=== PATIENT | female | born 1965 | race Caucasian/White ===

== ENCOUNTER 2020-09-30 12:02 | Emergency (ER) | payer OTHER, SELFPAY ==
--- NOTE | ~2020-09-30 | CT_ITS ---
EXAMINATION: CT ANGIOGRAM OF THE CHEST WITH AND WITHOUT CONTRAST (CT PULMONARY ANGIOGRAM FOR PE) CLINICAL INFORMATION: Reason for Exam COVID-19 positive, pleuritic chest pain rule out PE, pneumon COMPARISON: None TECHNIQUE: Prior to contrast administration, noncontrast localization images were obtained. Subsequently, multidetector volumetric imaging was performed from the thoracic inlet to below the diaphragms following the administration of 80 mL Omnipaque 350 intravenous contrast. No contrast reaction reported Sagittal, coronal, and MIP oblique sagittal reformatted images were obtained on the CT workstation, uploaded to PACS, and reviewed. This CT examination was performed using dose optimization techniques as appropriate, variously including the following: *Automated exposure control *Adjustment of mA and/or kV according to patient size (this includes techniques or standardized protocols for targeted exams where dose is matched to indication/reason for exam; i.e. extremities or head) *Use of iterative reconstruction technique Total exam dose-length product 123 mGy-cm FINDINGS: QUALITY OF STUDY/CONTRAST BOLUS: Satisfactory. PULMONARY ARTERIES: No central or segmental pulmonary emboli. THORACIC AORTA: No aneurysm or dissection. LUNG: A patchy groundglass densities seen scattered throughout both upper lobes, lower lobes, right middle lobe and lingula consistent with infiltrates. Question: The disease. PLEURA: No pleural effusion or pneumothorax. MEDIASTINUM: Normal heart size. No pericardial effusion. No hilar or mediastinal lymphadenopathy. No evidence of septal bowing or right heart strain. CHEST WALL/AXILLA: No axillary or internal mammary lymphadenopathy. OSSEOUS STRUCTURES: No acute or suspicious osseous abnormality. UPPER ABDOMEN: Unremarkable. No reflux of contrast into the hepatic veins to suggest elevated right heart pressures. CT/CT angio chest PE protocol IMPRESSION: No evidence PE. No evidence of aortic or aneurysm. Multiple groundglass densities scattered throughout the entire lung suspicious for developing infiltrates likely related to Covid disease. VTE: negative
[2020-09-30 12:10] VITALS: BP 98/55; PULSE 87; RESP 20; TEMP 36.8; O2SAT 96; BMI 32.4
--- NOTE | 2020-09-30 12:44 | ECG_ITS ---
Test Reason : CHEST PAIN Blood Pressure : / mmHG Vent. Rate : 075 BPM Atrial Rate : 075 BPM P-R Int : 142 ms QRS Dur : 082 ms QT Int : 358 ms P-R-T Axes : 002 -26 -06 degrees QTc Int : 399 ms Normal sinus rhythm Low voltage QRS Borderline ECG No previous ECGs available Referred By: Jose Alcazar Electronically Signed By:JAYA WESTBROOK
--- NOTE | 2020-09-30 12:48 | ED.GENADULT ---
HPI - General Adult General Chief complaint: Upper Respiratory Symptoms Stated complaint: + covid, sob, weakness Time Seen by Provider: 09/30/20 12:22 Source: patient and family (Daughter) Mode of arrival: ambulatory Limitations: language barrier (Patient's 1st language is Salvadorean, she does speak some [place]se) History of Present Illness HPI narrative: 55-year-old female who tested positive for COVID-19 on on 09/24/2020 who presents emergency department for evaluation of pleuritic chest pain, nonproductive cough, shortness of breath, dyspnea on exertion, subjective fever, fatigue with weakness, loss of appetite, vomiting and headache. Patient states that she has gotten progressively more short of breath with significant dyspnea on exertion over the past 2-3 days, she has developed a persistent, nonproductive cough which is triggered by breathing. She complains of a constant, diffuse, moderate to severe throbbing headache. She states that she has lost her appetite has had very little to eat over the past 24-48 hours. She states that she has had 2-3 episodes of vomiting per day. She denies diarrhea. The patient was not vaccinated for COVID-19. Her daughter is also COVID-19 positive. Related Data Previous Rx's Medication Instructions Recorded dexamethasone 6 mg PO DAILY 5 Days #5 tab 09/30/20 ondansetron 4 mg PO Q6-8H PRN #14 tab 09/30/20 Allergies Allergy/AdvReac Type Severity Reaction Status Date / Time No Known Allergies Allergy Verified 09/30/20 12:09 Review of Systems Review of Systems: Yes all other systems are reviewed and are negative COUNT INCLUDES THE [facility] Past Medical History COUNT INCLUDES THE [facility] Narrative: Patient has no chronic medical conditions, she does not take any medications on a regular basis, she does smoke cigarettes, she denies alcohol and drug use. Medical History COVID-19 Social History Social History Alcohol intake: never Smoking Status: Never smoker Advance Directives: No Advance Directives Information Provided: No Patient : No Physical Exam Vital Signs: Vital Signs: Last Vital Signs Temp 99.8 F 09/30/20 13:04 Pulse 74 09/30/20 14:16 Resp 16 09/30/20 14:16 BP 113/74 09/30/20 14:16 Pulse Ox 96 09/30/20 14:16 Body Mass Index 32.4 Const: General: cooperative and ill appearing Orientation/consciousness: oriented to person and oriented to place Limitations: no limitations HENMT: Head: Yes normal to inspection, Yes normocephalic and Yes atraumatic Ears: external ears normal General nose exam: Normal external nose present Face and sinus: Yes normal facial exam Mouth: Abnormal oral and palatal mucosa present (Very dry, no erythema or exudates) Throat: Yes posterior oropharynx normal Eyes: Periorbital: periorbital findings normal Eyelids: Yes eyelids normal Conjunctivae: conjunctivae normal Sclerae: sclerae normal Corneas: corneas normal Pupils: Equal, round and reactive pupils present Direct Ophthalmoscopy: normal light reflex Neck: Neck: Yes full ROM, Yes no lymphadenopathy, Yes no meningeal signs, Yes trachea midline and Yes supple Chest: Chest palpation & inspection: normal inspection of the chest and normal palpation of entire chest wall Resp: Effort & Inspection: able to speak in complete sentences Auscultation: rales bilateral in the lower lung mcnally and rhonchi (Diffuse) Cardio: Rate: regular rate Rhythm: regular rhythm Heart sounds: S1 normal heart sound present, S2 normal heart sound present and no murmurs GI: Inspection: Yes normal to inspection Palpation (GI): Soft to palpation, nontender, no guarding, not rigid and No hepatosplenomegaly present : General: Yes no CVA tenderness Back/Spine/Pelvis: Back: no CVA tenderness Cervical Spine: normal cervical lordosis Thoracic/Lumbar Spine: thoracic and lumbar spine normal to inspection Skin: Lesions: no lesions Rashes: no rashes Wounds: no wounds Neuro: General: oriented to person, oriented to place and no meningeal signs Cranial nerves: Yes CN's II-XII intact bilaterally and Yes Equal, round and reactive pupils present Cognition (Neuro): normal cognition Motor exam (neuro): 5/5 motor strength present throughout Extrem: General: Yes normal to inspection and Yes full ROM Psych: Appearance: well kempt Mental Status: mental status grossly normal Speech and movement: Normal speech and movement present Affect: normal affect Attitude: cooperative Thought process: Normal thought process present Thought content: Normal thought content present Course Course Course Narrative: 55-year-old female who tested COVID positive approximately 6 days prior to evaluation who presents emergency department for evaluation of worsening shortness of breath, dyspnea on exertion chest pain, loss of appetite, vomiting and myalgias. Vital signs were stable with an O2 saturation of 96% on room air. Physical examination did reveal an ill-appearing woman. Lung exam did reveal diffuse rhonchi and rales at the bases. I did order a laboratory evaluation to include CBC, CMP, troponin, CK, CRP, sedimentation rate, ferritin, D-dimer, PT INR, PTT and CT pulmonary artery PE protocol. Patient was ordered to get normal saline x1 L for her dehydration. I also ordered Toradol 30 mg IV for her pain, Zofran 4 mg IV for nausea and vomiting and Decadron 6 mg IV to help reduce inflammation secondary to her COVID-19 infection. 1742: Patient's laboratory evaluation revealed a low WBC of 3.2 and a low platelet count of 956669. Patient also had a slightly elevated lactic acid 2.8. CRP was slightly elevated at 1.7 and ESR was slightly elevated at 23. Ferritin was elevated at 672. CT pulmonary angiogram PE protocol revealed ground-glass appearance of the patient's lungs but no evidence of pulmonary embolism. The patient's findings are consistent with COVID-19 pneumonia. The patient has not had any demonstrate hypoxia while she has been here in the emergency department. She is feeling better after receiving 2 L of normal saline IV in the above medications. The patient will be discharged home with a prescription for Decadron 6 mg daily for 5 days. Zofran 0.4 mg ODT every 6 hours as needed for nausea and vomiting. She is also advised to take Tylenol. She states that she has a pulse oximeter at home and I told her for O2 saturation is consistently below 92% and she should return to the emergency department for re-evaluation. Medical Decision Making Lab Data Result diagrams: 09/30/20 13:29 09/30/20 13:29 Labs: Lab Results 09/30/20 09/30/20 09/30/20 Range/Units 13:29 13:29 13:29 WBC 3.2 L (4.8-10.8) X10*3/uL RBC 4.43 (4.20-5.50) X10*6/uL Hgb 13.6 (12.0-16.0) g/dl Hct 39.1 (37-47) % MCV 88.3 (80-98) fL MCH 30.7 (27.0-33.0) pg MCHC 34.8 (31.0-35.0) g/dl RDW 12.1 (11.0-16.0) % Plt Count 110 L (160-400) X10*3/uL MPV 10.9 (9.4-12.3) fL Immature Gran % (Auto) 0.3 (0.0-0.4) % Neut % (Auto) 60.6 (45-73) % Lymph % (Auto) 31.6 (20-40) % [place]lier % (Auto) 7.5 (2-11) % Eos % (Auto) 0.0 (0-4) % Baso % (Auto) 0.0 (0-2) % Lymph # (Auto) 1.0 L (1.2-4.9) X10*3/uL [place] # (Auto) 0.2 (0.1-1.2) X10*3/uL Eos # (Auto) 0.0 (0.0-0.4) X10*3/uL Baso # (Auto) 0.0 (0.0-0.2) X10*3/uL Abs Immat Gran (auto) 0.01 (0.00-0.03) X10*3/uL Absolute Neuts (auto) 1.9 L (2.0-8.3) X10*3/uL Absolute Nucleated RBC 0.000 (0.0-0.012) X10*3/uL Nucleated RBC % (auto) 0.0 (0.0-0.2) /100WBC ESR (0-20) MM/HR PT (10.8-13.0) SEC INR (0.9-1.1) APTT (24.1-38.0) SEC D-Dimer Cancelled Sodium (135-145) mmol/L Potassium (3.3-5.1) mmol/L Chloride (96-108) mmol/L Carbon Dioxide (22-29) mmol/L Anion Gap (12-20) BUN (9-16) mg/dL Creatinine (0.5-1.4) mg/dL Estim Creat Clear Calc Estimated GFR Random Glucose (60-115) mg/dL Lactic Acid (0.5-2.0) mmol/L Calcium (8.4-10.2) mg/dL Ferritin Cancelled Total Bilirubin (0.0-1.0) mg/dL AST (5-31) U/L ALT (0-31) U/L Alkaline Phosphatase (39-117) U/L Total Creatine Kinase (26-140) U/L Troponin I High Sens (<3.5-17.0) ng/L C-Reactive Protein (< or = 0.50) mg/dL Total Protein (6.5-8.0) g/dL Albumin (3.5-5.0) g/dL Lipase (8-78) U/L Urine Color Urine Appearance Urine pH (5.0-8.0) Ur Specific [place] (1.005-1.025) Urine Protein (NEG-TRACE) MG/DL Urine Glucose (UA) (NEG) MG/DL Urine Ketones (NEG) MG/DL Urine Blood (NEG) Urine Nitrite (NEG) Ur Leukocyte Esterase (NEG) Urine RBC (0) /HPF Urine WBC (0-4) /HPF Ur Squamous Epith Cells /LPF Urine Bacteria /LPF 09/30/20 09/30/20 09/30/20 Range/Units 13:29 13:29 13:29 WBC (4.8-10.8) X10*3/uL RBC (4.20-5.50) X10*6/uL Hgb (12.0-16.0) g/dl Hct (37-47) % MCV (80-98) fL MCH (27.0-33.0) pg MCHC (31.0-35.0) g/dl RDW (11.0-16.0) % Plt Count (160-400) X10*3/uL MPV (9.4-12.3) fL Immature Gran % (Auto) (0.0-0.4) % Neut % (Auto) (45-73) % Lymph % (Auto) (20-40) % [place]lier % (Auto) (2-11) % Eos % (Auto) (0-4) % Baso % (Auto) (0-2) % Lymph # (Auto) (1.2-4.9) X10*3/uL [place] # (Auto) (0.1-1.2) X10*3/uL Eos # (Auto) (0.0-0.4) X10*3/uL Baso # (Auto) (0.0-0.2) X10*3/uL Abs Immat Gran (auto) (0.00-0.03) X10*3/uL Absolute Neuts (auto) (2.0-8.3) X10*3/uL Absolute Nucleated RBC (0.0-0.012) X10*3/uL Nucleated RBC % (auto) (0.0-0.2) /100WBC ESR (0-20) MM/HR PT 12.4 (10.8-13.0) SEC INR 1.0 (0.9-1.1) APTT 35.7 (24.1-38.0) SEC D-Dimer 218 Sodium 141 (135-145) mmol/L Potassium 3.6 (3.3-5.1) mmol/L Chloride 102 (96-108) mmol/L Carbon Dioxide 28 (22-29) mmol/L Anion Gap 15 (12-20) BUN 6 L (9-16) mg/dL Creatinine 0.78 (0.5-1.4) mg/dL Estim Creat Clear Calc 84.1 Estimated GFR > 60 Random Glucose 105 (60-115) mg/dL Lactic Acid 2.8 H* (0.5-2.0) mmol/L Calcium 8.7 (8.4-10.2) mg/dL Ferritin 672 H Total Bilirubin 0.6 (0.0-1.0) mg/dL AST 40 H (5-31) U/L ALT 32 H (0-31) U/L Alkaline Phosphatase 75 (39-117) U/L Total Creatine Kinase 35 (26-140) U/L Troponin I High Sens (<3.5-17.0) ng/L C-Reactive Protein 1.17 H (< or = 0.50) mg/dL Total Protein 6.9 (6.5-8.0) g/dL Albumin 3.9 (3.5-5.0) g/dL Lipase 27 (8-78) U/L Urine Color Urine Appearance Urine pH (5.0-8.0) Ur Specific [place] (1.005-1.025) Urine Protein (NEG-TRACE) MG/DL Urine Glucose (UA) (NEG) MG/DL Urine Ketones (NEG) MG/DL Urine Blood (NEG) Urine Nitrite (NEG) Ur Leukocyte Esterase (NEG) Urine RBC (0) /HPF Urine WBC (0-4) /HPF Ur Squamous Epith Cells /LPF Urine Bacteria /LPF 09/30/20 09/30/20 09/30/20 Range/Units 13:29 13:29 13:30 WBC (4.8-10.8) X10*3/uL RBC (4.20-5.50) X10*6/uL Hgb (12.0-16.0) g/dl Hct (37-47) % MCV (80-98) fL MCH (27.0-33.0) pg MCHC (31.0-35.0) g/dl RDW (11.0-16.0) % Plt Count (160-400) X10*3/uL MPV (9.4-12.3) fL Immature Gran % (Auto) (0.0-0.4) % Neut % (Auto) (45-73) % Lymph % (Auto) (20-40) % [place] % (Auto) (2-11) % Eos % (Auto) (0-4) % Baso % (Auto) (0-2) % Lymph # (Auto) (1.2-4.9) X10*3/uL [place] # (Auto) (0.1-1.2) X10*3/uL Eos # (Auto) (0.0-0.4) X10*3/uL Baso # (Auto) (0.0-0.2) X10*3/uL Abs Immat Gran (auto) (0.00-0.03) X10*3/uL Absolute Neuts (auto) (2.0-8.3) X10*3/uL Absolute Nucleated RBC (0.0-0.012) X10*3/uL Nucleated RBC % (auto) (0.0-0.2) /100WBC ESR 23 H (0-20) MM/HR PT (10.8-13.0) SEC INR (0.9-1.1) APTT (24.1-38.0) SEC D-Dimer Sodium (135-145) mmol/L Potassium (3.3-5.1) mmol/L Chloride (96-108) mmol/L Carbon Dioxide (22-29) mmol/L Anion Gap (12-20) BUN (9-16) mg/dL Creatinine (0.5-1.4) mg/dL Estim Creat Clear Calc Estimated GFR Random Glucose (60-115) mg/dL Lactic Acid (0.5-2.0) mmol/L Calcium (8.4-10.2) mg/dL Ferritin Total Bilirubin (0.0-1.0) mg/dL AST (5-31) U/L ALT (0-31) U/L Alkaline Phosphatase (39-117) U/L Total Creatine Kinase Cancelled (26-140) U/L Troponin I High Sens 4.7 (<3.5-17.0) ng/L C-Reactive Protein Cancelled (< or = 0.50) mg/dL Total Protein (6.5-8.0) g/dL Albumin (3.5-5.0) g/dL Lipase (8-78) U/L Urine Color Urine Appearance Urine pH (5.0-8.0) Ur Specific [place] (1.005-1.025) Urine Protein (NEG-TRACE) MG/DL Urine Glucose (UA) (NEG) MG/DL Urine Ketones (NEG) MG/DL Urine Blood (NEG) Urine Nitrite (NEG) Ur Leukocyte Esterase (NEG) Urine RBC (0) /HPF Urine WBC (0-4) /HPF Ur Squamous Epith Cells /LPF Urine Bacteria /LPF 09/30/20 Range/Units 15:03 WBC (4.8-10.8) X10*3/uL RBC (4.20-5.50) X10*6/uL Hgb (12.0-16.0) g/dl Hct (37-47) % MCV (80-98) fL MCH (27.0-33.0) pg MCHC (31.0-35.0) g/dl RDW (11.0-16.0) % Plt Count (160-400) X10*3/uL MPV (9.4-12.3) fL Immature Gran % (Auto) (0.0-0.4) % Neut % (Auto) (45-73) % Lymph % (Auto) (20-40) % [place] % (Auto) (2-11) % Eos % (Auto) (0-4) % Baso % (Auto) (0-2) % Lymph # (Auto) (1.2-4.9) X10*3/uL [place] # (Auto) (0.1-1.2) X10*3/uL Eos # (Auto) (0.0-0.4) X10*3/uL Baso # (Auto) (0.0-0.2) X10*3/uL Abs Immat Gran (auto) (0.00-0.03) X10*3/uL Absolute Neuts (auto) (2.0-8.3) X10*3/uL Absolute Nucleated RBC (0.0-0.012) X10*3/uL Nucleated RBC % (auto) (0.0-0.2) /100WBC ESR (0-20) MM/HR PT (10.8-13.0) SEC INR (0.9-1.1) APTT (24.1-38.0) SEC D-Dimer Sodium (135-145) mmol/L Potassium (3.3-5.1) mmol/L Chloride (96-108) mmol/L Carbon Dioxide (22-29) mmol/L Anion Gap (12-20) BUN (9-16) mg/dL Creatinine (0.5-1.4) mg/dL Estim Creat Clear Calc Estimated GFR Random Glucose (60-115) mg/dL Lactic Acid (0.5-2.0) mmol/L Calcium (8.4-10.2) mg/dL Ferritin Total Bilirubin (0.0-1.0) mg/dL AST (5-31) U/L ALT (0-31) U/L Alkaline Phosphatase (39-117) U/L Total Creatine Kinase (26-140) U/L Troponin I High Sens (<3.5-17.0) ng/L C-Reactive Protein (< or = 0.50) mg/dL Total Protein (6.5-8.0) g/dL Albumin (3.5-5.0) g/dL Lipase (8-78) U/L Urine Color YELLOW Urine Appearance CLEAR Urine pH 6.5 (5.0-8.0) Ur Specific [place] <= 1.005 (1.005-1.025) Urine Protein TRACE (NEG-TRACE) MG/DL Urine Glucose (UA) NEG (NEG) MG/DL Urine Ketones 5 (NEG) MG/DL Urine Blood 3+ H (NEG) Urine Nitrite NEG (NEG) Ur Leukocyte Esterase NEG (NEG) Urine RBC 1-4 (0) /HPF Urine WBC 0 (0-4) /HPF Ur Squamous Epith Cells 1+ /LPF Urine Bacteria NONE /LPF ECG Data Attestation: I personally reviewed and interpreted this ECG as follows: Interpretation: 1249: Normal sinus rhythm with a rate of 75, normal WA, QR and QTC intervals, inverted T-wave in lead 3, no ST segment elevation, no ST segment depression, no old EKG for comparison. Discharge Plan Discharge Clinical Impression: Pneumonia due to 2019 novel coronavirus, Acute dehydration Patient Disposition: Home, Self-Care Instructions: COVID-19 (Coronavirus Disease 2019) (ED) Additional Instructions: Your laboratory evaluation is consistent with COVID-[address] scan of the chest is consistent with the COVID-19 pneumonia as well, there is no evidence of blood clots in your lungs at this time which is reassuring. Take dexamethasone 6 mg, 1 pill daily for 5 days. This is a strong anti-inflammatory medication and should help reduce the inflammation in your lungs. Take Zofran (ondansetron) ODT 4 mg, 1 pill dissolved in your mouth every 6-8 hours as needed for nausea and vomiting Take Tylenol (acetaminophen) 500 mg pills, 2 pills every 4 to 6 hours as needed for pain or fever. Use your O2 saturation monitor. If you drop consistently below 92% then you should return to the emergency department for re-evaluation. If your oxygen level is 88% or below, we often treat you with oxygen in the hospital. Follow-up with your doctor in 2 days. Please return to the emergency department if your symptoms get worse or if you develop any symptoms that are concerning to you. Prescriptions: New dexamethasone 6 mg tablet 6 mg PO DAILY 5 Days Qty: 5 RF: 0 ondansetron 4 mg tablet,disintegrating 4 mg PO Q6-8H PRN (Reason: nausea and vomiting) Qty: 14 RF: 0
[2020-09-30 13:04] VITALS: BP 118/85; PULSE 75; RESP 20; TEMP 37.7; O2SAT 98
[2020-09-30 13:38] LABS: MANUAL DIFF FLAG NO
[2020-09-30 13:41] LABS: Hematocrit 39.1 % (37-47); Hemoglobin 13.6 g/dl (12.0-16.0); Imm Gran Abs Auto 0.01 X10*3/uL (0.00-0.03); Imm Gran Pct Auto 0.3 % (0.0-0.4); Lymphocytes Percent Auto 31.6 % (20-40); Mean Corpuscular HGB Conc 34.8 g/dl (31.0-35.0); Mean Corpuscular Hemoglobin 30.7 pg (27.0-33.0); Mean Corpuscular Volume 88.3 fL (80-98); Mean Platelet Volume 10.9 fL (9.4-12.3); Monocytes Absolute Auto 0.2 X10*3/uL (0.1-1.2); Monocytes Percent Auto 7.5 % (2-11); Neutrophils Absolute Auto 1.9 X10*3/uL (2.0-8.3); Neutrophils Percent Auto 60.6 % (45-73); Platelet Count 110 X10*3/uL (160-400); Red Blood Count 4.43 X10*6/uL (4.20-5.50); Red Cell Distribution Width 12.1 % (11.0-16.0); White Blood Count 3.2 X10*3/uL (4.8-10.8)
[2020-09-30] MEDS: ondansetron HCL 4 MG/2 ML VIAL IVPUSH (13:41)
[2020-09-30] MEDS: dexAMETHasone sod phosphate 4 MG/ML VIAL 6 MG IVPUSH (13:41)
[2020-09-30] MEDS: 0.9 % Sodium Chloride 1,000 ML 999 ML IV ×3 (13:44→20:04)
[2020-09-30] MEDS: Ketorolac Tromethamine 30 MG/ML VIAL IVPUSH (13:44)
[2020-09-30 13:51] LABS: Prothrombin Time 12.4 SEC (10.8-13.0)
[2020-09-30 13:54] LABS: D Dimer 218 NG/ML; Partial Thromboplastin Time 35.7 SEC (24.1-38.0)
[2020-09-30 14:16] VITALS: BP 113/74; PULSE 74; RESP 16; O2SAT 96
[2020-09-30 14:30] LABS: Erythrocyte Sedimentation Rate 23 MM/HR (0-20)
[2020-09-30 14:35] LABS: Alanine Aminotransferase 32 U/L (0-31); Albumin Level 3.9 g/dL (3.5-5.0); Alkaline Phosphatase 75 U/L (39-117); Anion Gap 15 (12-20); Aspartate Amino Transferase 40 U/L (5-31); Bilirubin Total 0.6 mg/dL (0.0-1.0); Blood Urea Nitrogen 6 mg/dL (9-16); C Reactive Protein 1.17 mg/dL (< or = 0.50); Calcium 8.7 mg/dL (8.4-10.2); Carbon Dioxide 28 mmol/L (22-29); Chloride 102 mmol/L (96-108); Creatinine Clr Calc Pharmacy 84.1; Estimated Glomerular Filt Rate > 60; Glucose Random 105 mg/dL (60-115); Lactic Acid 2.8 mmol/L (0.5-2.0); Lipase 27 U/L (8-78); Potassium 3.6 mmol/L (3.3-5.1); Sodium 141 mmol/L (135-145); Total Protein 6.9 g/dL (6.5-8.0)
[2020-09-30 14:37] LABS: Troponin-I High Sensitivity 4.7 ng/L (<3.5-17.0)
[2020-09-30 14:55] LABS: Ferritin 672 ng/mL (10-250)
[2020-09-30 15:17] LABS: Glucose Urine UA NEG (NEG); Leukocyte Esterase Urine NEG (NEG); Nitrite Urine NEG (NEG); PH 6.5 (5.0-8.0); Specific Gravity - Urine <= 1.005 (1.005-1.025); Urine Blood 3+ (NEG); Urine Ketones 5 MG/DL (NEG); Urine Protein TRACE MG/DL (NEG-TRACE)
[2020-09-30 15:21] LABS: Appearance Urine CLEAR; Color Urine YELLOW
[2020-09-30 15:35] LABS: Reflex Lactate? Lactic Acid Added
[2020-09-30 15:46] LABS: Squamous Epithelial Cell Urine 1+ /LPF; WBC Urine 0 /HPF (0-4)
[2020-09-30] MEDS: iohexoL 350 MG/ML 100 ML INFUS..BTL IV (16:37)
[2020-09-30 19:36] LABS: ~Lactic Acid-LAB USE ONLY 2.7 mmol/L (0.5-2.0)
[2020-09-30 20:24] VITALS: BP 142/79; PULSE 79; RESP 16; TEMP 36.6; O2SAT 95
--- NOTE | 2020-09-30 20:53 | PC.NURSE ---
PT GIVEN ICE WATER, PUDDING AND CRACKERS. PT IN NO DISTRESS, AMBULATORY WITH STEADY GAIT. OCCASIONAL COUGH.
[2020-09-30 21:10] LABS: Reflex Lactate? 2 Y
[2020-09-30 21:30] LABS: Lactic Acid 0.9 mmol/L (0.5-2.0)
[2020-09-30 21:31] VITALS: BP 146/81; PULSE 76; RESP 16; TEMP 36.7; O2SAT 96
== END 2020-09-30 21:20 | disposition home or self-care (01) ==
PROVIDERS: Emergency Medicine; Emergency Provider Emergency Medicine Emergency Medical Services
DX: U07.1 COVID-19 (principal); J12.82 Pneumonia due to coronavirus disease 2019; E86.0 Dehydration; Z79.899 Other long term (current) drug therapy
CPT/HCPCS: 36415; 71275; 80053; 81001; 82550; 82728; 83605; 83690; 84484; 85025; 85379; 85610; 85652; 85730; 86140; 87040; 93005; 96361; 96365; 96375; 99285; J1100; J1885; J2405; Q9967